=== PATIENT | female | born 1980 | race American Indian/Alaskan Native ===

== ENCOUNTER 2016-08-10 07:03 | Day surgery (SDC) | payer MEDICAID ==
[~2016-08-10 07:03] MED LIST: ANCEF/STERILE WATER 2 GM/20 ML IV NR
[2016-08-10] MEDS ORDERED: DIPRIVAN 10 MG/ML IV ONE (07:41)
[2016-08-10] MEDS ORDERED: DILAUDID ONE (07:42)
[2016-08-10] MEDS ORDERED: DILAUDID IV PRN (07:44)
--- NOTE | 2016-08-10 07:59 | Anesthesia Day of Surgery ---
Anesthesia Day of Surgery - Day of Surgery Patient Examined: Yes Patient H&P Reviewed: Yes Patient is NPO: Yes
[2016-08-10] MEDS ORDERED: NACL 0.9% 1000 ML 1,000 ML IV SCH (08:00)
[2016-08-10] MEDS ORDERED: PEPCID IV NR (08:00)
[2016-08-10] MEDS ORDERED: LACTATED RINGERS 1,000 ML IV SCH (08:00)
--- NOTE | 2016-08-10 08:01 | Anesthesia Consultation ---
Anesthesia Consult and Med Hx - Airway Anesthetic Teeth Evaluation: Good ROM Head & Neck: Adequate Mental/Hyoid Distance: Adequate Mallampati Class: Class II Intubation Access Assessment: Probably Good - Pulmonary Exam CTA: Yes - Cardiac Exam Cardiac Exam: RRR - Pre-Operative Health Status ASA Pre-Surgery Classification: ASA2 Proposed Anesthetic Plan: General - Pulmonary Hx Smoking: No SOB: No - Cardiovascular System Hx Hypertension: Yes (DURING , MAY 2016(NEVER ON MEDS)) - Central Nervous System Hx Psychiatric Problems: No - Endocrine Hx Hypothyroidism: Yes (WAS ON LEVOTHYROXINE, STOPPED DURING , NONE >1 YR) - Hematic Hx Anemia: Yes - Other Systems Hx Alcohol Use: No Hx Substance Use: No Hx Cancer: No - Additional Comments Anesthesia Medical History Comments: No prior anesthesia. No family history. 8 weeks
[2016-08-10 08:32] LABS: Hematocrit 26.7 % (30.3-42.9); Hemoglobin 8.3 gm/dl (10.1-14.3); Mean Corpuscular HGB Conc 31 % (30-34); Mean Corpuscular Volume 72 fl (79-97); Platelet Count 462 K/mm3 (140-440); Red Blood Count 3.72 M/mm3 (3.65-5.03); Red Cell Distribution Width 18.9 % (13.2-15.2); White Blood Count 8.1 K/mm3 (4.5-11.0)
[2016-08-10 08:35] LABS: Mean Corpuscular Hemoglobin 22 pg (28-32)
[2016-08-10] MEDS: VERSED IV NR ×2 (08:42→08:46)
[2016-08-10] MEDS ORDERED: ZOFRAN ONE (09:04)
[2016-08-10] MEDS ORDERED: XYLOCAINE MPF 2% ONE (09:04)
[2016-08-10] MEDS ORDERED: DECADRON ONE (09:04)
[2016-08-10 09:27] LABS: Basophils % (Manual) 0 % (0.0-1.8); Blastocytes % (Manual) 0 %; Hypochromasia 1+
[2016-08-10 09:28] LABS: Anisocytosis 1+; Diff Status Complete; Ovalocytes 1+; Tear Drop Cells 1+
[2016-08-10] MEDS ORDERED: NACL 0.9% IR ONE (09:30)
--- NOTE | 2016-08-10 10:12 | Post Anesthesia Evaluation ---
- Post Anesthesia Evaluation Patient Participated: No (pt resting comfortably) Airway Patent: Yes Stable Respiratory Function: Yes Nausea/Vomiting: No Temp > 96.8F: Yes Pain Manageable: Yes Adequeate Hydration: Yes Anesthesia Complications: No Block Receding Appropriately: Not Applicable Patient on Ventilator: No
[2016-08-10] MEDS: SUBLIMAZE IV PRN ×2 (10:22→10:32)
[2016-08-10] MEDS: DILAUDID IV PRN ×4 (10:27→11:05)
[2016-08-10 18:32] VITALS: BP 134/65
--- NOTE | 2016-08-17 10:48 | Operative Report ---
PREOPERATIVE DIAGNOSIS: Hidradenitis suppurativa of the bilateral groins and all the mons pubis origins. POSTOPERATIVE DIAGNOSIS: Hidradenitis suppurativa of the bilateral groins and all the mons pubis origins. PROCEDURE: Radical excision of skin, bilateral groins; mons pubis and hernia. SURGEON: Bno Sharma MD DESCRIPTION OF PROCEDURE: The patient was brought to the operating room and placed in supine position. Following administration of general anesthesia, positioned in frog leg position. Following preoperative markings, all the affected skin and hair bearing skin within the above-mentioned areas circumferentially incised using the electrocautery. These were sent to pathology as specimen. Moistened gauze dressing was applied. The patient tolerated the procedure well and returned to recovery room in stable condition. JOB# [id number] FTW/NTS
== END 2016-08-10 13:05 | disposition home or self-care (01) ==
LOC: EDBD → OR 07:03 → EDBD 08:00 → OR 13:05
PROVIDERS: ATTEND Plastic Surgery
DX: L73.2 Hidradenitis suppurativa (principal); E03.9 Hypothyroidism, unspecified; D64.9 Anemia, unspecified
CPT/HCPCS: 11462; 36415; 81025; 85007; 85025; 88305; J0690; J1100; J1170; J2250; J2405; J2704; J3010; J7030

== ENCOUNTER 2016-08-16 11:45 | Emergency (ER) | payer MEDICAID ==
[2016-08-16] MEDS ORDERED: NACL 0.9% 1000 ML 1,000 ML IV ONE (13:13)
[2016-08-16] MEDS ORDERED: ZOFRAN IV ONE ×2 (13:36→16:55)
[2016-08-16] MEDS ORDERED: MORPHINE IV ONE ×2 (13:36→16:55)
[2016-08-16 14:07] LABS: INR 1.04 (0.87-1.13)
[2016-08-16 14:21] LABS: Alanine Aminotransferase 11 units/L (7-56); Albumin 3.5 g/dL (3.9-5); Albumin/Globulin Ratio 0.8 %; Alkaline Phosphatase 88 units/L (35-129); Anion Gap 18 mmol/L; Bilirubin,Total 0.2 mg/dL (0.1-1.2); Blood Urea Nitrogen 11 mg/dL (7-17); Calcium 9.6 mg/dL (8.4-10.2); Carbon Dioxide 26 mmol/L (22-30); Chloride 96.1 mmol/L (98-107); Glucose 108 mg/dL (65-100); Potassium 5.2 mmol/L (3.6-5.0); Sodium 135 mmol/L (137-145); Total Protein 8.1 g/dL (6.3-8.2)
[2016-08-16 14:23] LABS: Bilirubin,Direct < 0.2 mg/dL (0-0.2)
[2016-08-16 14:39] LABS: Basophils % (Auto) 0.3 % (0.0-1.8); Eosinophils % (Auto) 1.7 % (0.0-4.3); Hematocrit 27.2 % (30.3-42.9); Hemoglobin 8.3 gm/dl (10.1-14.3); Mean Corpuscular HGB Conc 31 % (30-34); Mean Corpuscular Hemoglobin 22 pg (28-32); Mean Corpuscular Volume 70 fl (79-97); Platelet Count 444 K/mm3 (140-440); Red Blood Count 3.87 M/mm3 (3.65-5.03); Red Cell Distribution Width 18.6 % (13.2-15.2); White Blood Count 10.8 K/mm3 (4.5-11.0)
[2016-08-16] MEDS ORDERED: NACL ONE (15:04)
[2016-08-16 15:10] LABS: Bacteria,Urine 1+ /HPF (Negative); Bilirubin,Urine NEG (Negative); Blood,Urine NEG (Negative); Ketones,Urine NEG (Negative); Leukocyte Esterase,Urine NEG (Negative); Mucus,Urine FEW /HPF; Nitrite,Urine NEG (Negative); Protein,Urine <15 mg/dL mg/dL (Negative); Uric Acid Crystals,Urine 2+; Urobilinogen,Urine < 2.0 mg/dL (<2.0); WBC,Urine < 1.0 /HPF (0.0-6.0)
--- NOTE | 2016-08-16 16:32 | Emergency Department Report ---
ED General Adult HPI - General Chief complaint: Abdominal Pain Stated complaint: POST OP BLEEDING Time Seen by Provider: 08/16/16 13:12 Source: EMS Mode of arrival: Ambulatory Limitations: No Limitations - History of Present Illness Initial comments: Patient is status post a surgical incision for hidradenitis supperativa in the inguinal area. She had bilateral inguinal it's excisions. He called her plastic surgeon today. He called me in the emergency department and I had a very terrible cell signal. He stated to be reassuring me that there was no significant problem. However, the communication was very unclear as above indicated. The mother presents with her daughter stating that there was pulsatile flow from the right inguinal area area and she is about one week out from her surgical procedure. She's had no problems up until now. Patient has a history of chronic anemia. According to her mother it is familial but she cannot provide me any specific cause. -: Gradual Location: right (inguinal area) Consistency: now resolved (bleeding is resolved) Improves with: none Worsens with: none Associated Symptoms: denies other symptoms Treatments Prior to Arrival: none - Related Data Home Medications Medication Instructions Recorded Confirmed Last Taken Docusate Sodium [Colace] 100 mg PO BID 08/03/16 08/03/16 08/08/16 Iron,Carbonyl/Vit C/Vit B12/FA 1 each PO DAILY 08/03/16 08/03/16 08/08/16 [Iron 100 Plus Tablet] Allergies Allergy/AdvReac Type Severity Reaction Status Date / Time No Known Allergies Allergy Unverified 08/03/16 13:33 ED Review of Systems ROS: Stated complaint: POST OP BLEEDING Other details as noted in HPI Constitutional: denies: chills, fever Eyes: denies: eye pain, eye discharge, vision change ENT: denies: ear pain, throat pain Respiratory: denies: cough, shortness of breath, wheezing Cardiovascular: denies: chest pain, palpitations Endocrine: no symptoms reported Gastrointestinal: denies: abdominal pain, nausea, diarrhea Genitourinary: denies: urgency, dysuria, discharge Musculoskeletal: denies: back pain, joint swelling, arthralgia Skin: denies: rash, lesions Neurological: denies: headache, weakness, paresthesias Psychiatric: denies: anxiety, depression Hematological/Lymphatic: denies: easy bleeding, easy bruising ED Past Medical Hx - Past Medical History Hx Hypertension: Yes (DURING , MAY 2016(NEVER ON MEDS)) Hx GERD: No Hx HIV: No Additional medical history: anemia - Surgical History Additional Surgical History: hair follicles removed in groin - Social History Smoking Status: Never Smoker Substance Use Type: None - Medications Home Medications: Home Medications Medication Instructions Recorded Confirmed Last Taken Type Docusate Sodium [Colace] 100 mg PO BID 08/03/16 08/03/16 08/08/16 History Iron,Carbonyl/Vit C/Vit B12/FA 1 each PO DAILY 08/03/16 08/03/16 08/08/16 History [Iron 100 Plus Tablet] ED Physical Exam - General Limitations: No Limitations General appearance: alert, in no apparent distress - Head Head exam: Present: atraumatic, normocephalic - Eye Eye exam: Present: normal appearance - ENT ENT exam: Present: mucous membranes moist - Neck Neck exam: Present: normal inspection - Respiratory Respiratory exam: Present: normal lung sounds bilaterally. Absent: respiratory distress - Cardiovascular Cardiovascular Exam: Present: regular rate, normal rhythm. Absent: systolic murmur, diastolic murmur, rubs, gallop - GI/Abdominal GI/Abdominal exam: Present: soft, normal bowel sounds, other (patient has wide full-thickness excisions of both inguinal areas. Surgical sites are clean. There are some gauze which are tinged with blood. However there is no active bleeding.). Absent: distended, tenderness, guarding, rebound, rigid - Extremities Exam Extremities exam: Present: normal inspection - Back Exam Back exam: Present: normal inspection - Neurological Exam Neurological exam: Present: alert, oriented X3 - Psychiatric Psychiatric exam: Present: normal affect, normal mood - Skin Skin exam: Present: warm, dry, intact, normal color. Absent: rash ED Course Vital Signs 08/16/16 08/16/16 08/16/16 11:58 12:01 12:05 Temperature 98.1 F Pulse Rate 104 H Respiratory 20 Rate Blood Pressure 126/68 Blood Pressure 126/68 [Left] O2 Sat by Pulse 99 100 98 Oximetry 08/16/16 08/16/16 08/16/16 12:15 12:30 12:45 Temperature Pulse Rate Respiratory Rate Blood Pressure 130/71 128/63 124/62 Blood Pressure [Left] O2 Sat by Pulse 100 100 100 Oximetry 08/16/16 08/16/16 08/16/16 13:00 13:15 13:30 Temperature Pulse Rate Respiratory Rate Blood Pressure 129/66 127/66 122/72 Blood Pressure [Left] O2 Sat by Pulse 100 100 Oximetry 08/16/16 08/16/16 08/16/16 13:45 14:00 14:11 Temperature Pulse Rate Respiratory 20 Rate Blood Pressure 116/78 128/62 Blood Pressure [Left] O2 Sat by Pulse 100 100 Oximetry 08/16/16 14:12 Temperature Pulse Rate Respiratory 20 Rate Blood Pressure Blood Pressure [Left] O2 Sat by Pulse 100 Oximetry - Reevaluation(s) Reevaluation #1: Reexamination, the patient has no significant bleeding. She will provide another dressing. She is to follow-up with her surgeon tomorrow. 08/16/16 16:54 ED Medical Decision Making - Lab Data Result diagrams: 08/16/16 13:38 08/16/16 13:38 - Radiology Data Radiology results: report reviewed (no acute process) Critical care attestation.: If time is entered above; I have spent that time in minutes in the direct care of this critically ill patient, excluding procedure time. ED Disposition Clinical Impression: Hyperkalemia Postoperative hemorrhage Qualifiers: Surgical complication system/body Area: subcutaneous tissue Procedure type: non -dermatologic Qualified Code(s): L76.22 - Postprocedural hemorrhage of skin and subcutaneous tissue following other procedure Anemia Qualifiers: Anemia type: unspecified type Qualified Code(s): D64.9 - Anemia, unspecified Disposition: DISCHARGED TO HOME OR SELFCARE Is pt being admited?: No Does the pt Need Aspirin: No Condition: Stable Instructions: Abdominal Pain (ED), Postoperative Bleeding (ED) Additional Instructions: Follow-up with plastic surgeon. Return any acute change or problem. Iron over- the-counter for a week would be recommended. Her potassium was found to be slightly elevated. We gave him 1 dose of medicine for this. They should be rechecked by a primary care provider. Referrals: PRIMARY CARE [Primary Care Provider] - 3-5 Days plastic, surgeon [Other] - 24 Hours Time of Disposition: 16:51
--- NOTE | 2016-08-16 16:43 | Cat Scan Report ---
FINAL REPORT PROCEDURE: CT ANGIO ABDOMEN PELVIS TECHNIQUE: Computerized axial tomographic angiography of the abdomen and pelvis was performed after the IV injection of iodinated nonionic contrast. The image data was postprocessed using 2-dimensional multiplanar reformatted (MPR) and 3-dimensional (MIP and/or volume rendered) techniques. HISTORY: post op arterial bleeding r groin COMPARISON: No prior studies are available for comparison. FINDINGS: Lower Lung bautista: There is minimal dependent atelectasis. Lung bases otherwise are unremarkable. Upper Abdomen: The liver, the gallbladder, the adrenal glands, the pancreas are unremarkable. The spleen is mildly enlarged measuring 14.3 centimeters otherwise unremarkable. Kidneys, Ureters and Urinary bladder: Gallo catheter is seen in the urinary bladder which is only partially filled otherwise unremarkable. Kidneys and ureters are unremarkable. Retroperitoneum: Abdominal aorta appears normal. Celiac trunk superior mesenteric artery inferior mesenteric artery and renal arteries are unremarkable. Right and left common iliac arteries the internal and external iliac arteries are unremarkable. Numerous nonspecific lymph nodes are seen in the right and left groin measuring up to 1 centimeter greatest short axis. Nonspecific subcentimeter lymph nodes are seen in the retroperitoneum. No pathologically enlarged lymph nodes are identified. Bowel: No focal bowel abnormalities are seen. No evidence of bowel obstruction ascites or free intraperitoneal gas. Normal-appearing appendix is seen in the right lower quadrant. There is moderate amount of stool throughout the entire colon. The patient appears to be constipated. Reproductive organs: Uterus is unremarkable. Cystic change seen in the left ovary measuring 3 centimeters suggesting a maturing follicle. Other: No acute bony abnormalities are identified. There is cutaneous irregularity and subcutaneous edema medially in the right and left groin. This may be related to recent surgery. Correlation with surgical history is recommended. IMPRESSION: Postsurgical changes right and left side of the groin as described. No focal arterial disruption is identified. Please see above comments. Mild nonspecific adenopathy right and left side of the groin.
[2016-08-16] MEDS ORDERED: NACL 0.9% 500 ML IR ONE (18:32)
[2016-08-16] MEDS ORDERED: TYLENOL PO ONE (19:52)
[2016-08-16 22:03] VITALS: BP 114/66
== END 2016-08-16 21:30 | disposition home or self-care (01) ==
LOC: EDBD → ED 11:45
DX: L76.22 Postprocedural hemorrhage of skin and subcutaneous tissue following other procedure (principal); E87.5 Hyperkalemia; D64.9 Anemia, unspecified; I10 Essential (primary) hypertension; Y83.8 Other surgical procedures as the cause of abnormal reaction of the patient, or of later complication, without mention of misadventure at the time of the procedure
CPT/HCPCS: 36415; 74174; 80048; 80074; 81001; 81025; 85025; 85610; 85730; 86850; 86900; 86901; 96361; 96374; 96375; 96376; 99284; J2270; J2405; Q9967

== ENCOUNTER 2016-08-31 06:57 | Day surgery (SDC) | payer MEDICAID ==
--- NOTE | 2016-08-31 08:40 | Anesthesia Day of Surgery ---
Anesthesia Day of Surgery - Day of Surgery Patient Examined: Yes Patient H&P Reviewed: Yes Patient is NPO: Yes
--- NOTE | 2016-08-31 08:40 | Anesthesia Consultation ---
Anesthesia Consult and Med Hx Date of service: 08/31/16 - Airway Anesthetic Teeth Evaluation: Good ROM Head & Neck: Adequate Mental/Hyoid Distance: Adequate Mallampati Class: Class II Intubation Access Assessment: Probably Good - Pulmonary Exam CTA: Yes - Cardiac Exam Cardiac Exam: RRR - Pre-Operative Health Status ASA Pre-Surgery Classification: ASA2 Proposed Anesthetic Plan: General - Pulmonary Hx Smoking: No SOB: No - Cardiovascular System Hx Hypertension: Yes (DURING , MAY 2016(NEVER ON MEDS)) - Central Nervous System Hx Psychiatric Problems: No - Endocrine Hx Hypothyroidism: Yes (WAS ON LEVOTHYROXINE, STOPPED DURING , NONE >1 YR) - Hematic Hx Anemia: Yes - Other Systems Hx Alcohol Use: No Hx Substance Use: No Hx Cancer: No Hx Obesity: Yes
[2016-08-31] MEDS ORDERED: ZOFRAN IV PRN (08:41)
[2016-08-31] MEDS ORDERED: PERCOCET 5/325 PO PRN (08:41)
[2016-08-31 08:54] LABS: Hematocrit 26.1 % (30.3-42.9)
[2016-08-31] MEDS ORDERED: LACTATED RINGERS 1,000 ML IV SCH (09:00)
[2016-08-31] MEDS ORDERED: PEPCID PO NR (09:00)
[2016-08-31] MEDS ORDERED: VERSED IV NR (09:00)
[2016-08-31] MEDS ORDERED: DILAUDID ONE (09:22)
[2016-08-31] MEDS ORDERED: DIPRIVAN 10 MG/ML IV ONE (09:22)
[2016-08-31] MEDS ORDERED: XYLOCAINE MPF 2% ONE (09:22)
[2016-08-31] MEDS ORDERED: MINERAL OIL TOPICAL LIGHT TP ONE (09:58)
[2016-08-31] MEDS ORDERED: BACTROBAN 2% ONE (09:58)
[2016-08-31] MEDS ORDERED: ZOFRAN ONE (10:23)
[2016-08-31] MEDS ORDERED: DECADRON ONE (10:23)
[2016-08-31] MEDS ORDERED: NACL 0.9% IR ONE (10:45)
[2016-08-31] MEDS: DILAUDID IV PRN ×4 (11:45→12:27)
--- NOTE | 2016-08-31 12:37 | Post Anesthesia Evaluation ---
- Post Anesthesia Evaluation Patient Participated: Yes Airway Patent: Yes Stable Respiratory Function: Yes Temp > 96.8F: Yes Pain Manageable: Yes Adequeate Hydration: Yes Anesthesia Complications: No Block Receding Appropriately: Not Applicable
--- NOTE | 2016-08-31 12:38 | Operative Report ---
SERVICE: Plastic surgery. PREOPERATIVE DIAGNOSES: 1. Open wound of perineum, groin and mons pubis; approximately 600 square cm. 2. Hidradenitis suppurativa. POSTOPERATIVE DIAGNOSES: 1. Open wound of perineum, groin and mons pubis; approximately 600 square cm. 2. Hidradenitis suppurativa. PROCEDURE: 1. Split thickness skin grafting to mons pubis, perineum, and bilateral groins; approximately 600 square cm. 2. Tangential excisional prep of bilateral groins, perineum and mons pubis; approximately 600 square cm. SURGEON: Bon Sharma MD. DESCRIPTION OF PROCEDURE: The patient was brought in to the operating room and placed on the table in supine position. Following administration of general anesthesia the perineum, bilateral groins, and mons pubis were prepped with Betadine solution and draped in usual sterile manner. A #10 blade scalpel was used to tangentially excise the wound to healthy bleeding tissue followed by harvesting a split thickness skin graft from the left thigh measuring of an inch meshed one and half to one, secured in place over the recipient site using jonh, followed by Xeroform gauze and lightly compressive dressing. The patient tolerated the procedure well and returned to recovery room in stable condition. JOB# [id number] FTW/AVELINA
[2016-08-31 16:19] VITALS: BP 132/70
== END 2016-08-31 14:35 | disposition home or self-care (01) ==
LOC: OR 06:57 → EDBD 09:45 → OR 14:35
PROVIDERS: ATTEND Plastic Surgery
DX: Z48.1 Encounter for planned postprocedural wound closure (principal); L73.2 Hidradenitis suppurativa; E03.9 Hypothyroidism, unspecified; D64.9 Anemia, unspecified; E66.9 Obesity, unspecified; Z68.38 Body mass index [BMI] 38.0-38.9, adult; Z79.899 Other long term (current) drug therapy; Z80.0 Family history of malignant neoplasm of digestive organs; Z80.3 Family history of malignant neoplasm of breast
CPT/HCPCS: 11446; 15120; 15121; 36415; 81025; 85014; 85018; J0690; J1100; J1170; J2250; J2405; J2704; J7120